=== PATIENT | male | born 1960 | race Caucasian/White ===

== ENCOUNTER 2016-09-01 05:01 | Emergency (ER) | payer OTHER ==
[2016-09-01 05:23] VITALS: BP 130/90; TEMP 98.8; O2SAT 97
--- NOTE | 2016-09-01 05:24 | ED.PDOC ---
History of Present Illness - General Chief Complaint: GI Problem Stated Complaint: upper abd pain, "galstones" Time Seen by Provider: 09/01/16 05:19 - History of Present Illness Allergies/Adverse Reactions: Allergies NO KNOWN ALLERGY Allergy (Unverified 11/14/14 07:32) Home Medications: Ambulatory Orders Lisinopril 20 mg PO BID 11/14/14 Past Medical History (General) - Patient Medical History Hx Stroke: No Hx Congestive Heart Failure: No Hx Diabetes: No Hx Hepatitis C: Yes - Vaccination History Hx Influenza Vaccination: No - Social History Hx Tobacco Use: Yes Family Medical History - Family History Father Family History: Unknown Living Status: Still Living Progress - Progress Progress: 09/01/16 05:55 REFUSES BLOOD DRAW. WANT'S A PILL AND GO. SWITCHED TORADOL TO PO Departure - Departure Clinical Impression: Epigastric abdominal pain, Essential (primary) hypertension ICD-10 Supporting Text: BILIARY COLIC VS GASTRITIS Time of Disposition: 05:57 Disposition: Discharge to Home or Self Care Condition: Fair Departure Forms: ED Discharge - Pt. Copy, Patient Portal Self Enrollment Instructions: Gallstones Home Medications: Ambulatory Orders Lisinopril 20 mg PO BID 11/14/14
[2016-09-01] MEDS ORDERED: PROMETHAZINE HCL INJ 12.5 MG in SODIUM CHLORIDE 0.9% 50ML 50 ML IVPB ONE (05:25)
[2016-09-01] MEDS ORDERED: KETOROLAC TROMETHAMINE INJ 30 MG/ML VIAL IV ONE (05:25)
[2016-09-01] MEDS ORDERED: KETOROLAC TROMETHAMINE 10 MG TAB PO ONE (05:45)
== END 2016-09-01 06:05 | disposition home or self-care (01) ==
LOC: ER 05:01
DX: R10.13 Epigastric pain (principal); I10 Essential (primary) hypertension; Z86.19 Personal history of other infectious and parasitic diseases; Z87.891 Personal history of nicotine dependence

== ENCOUNTER → 2016-09-20 | Outpatient (CLI) | payer OTHER ==
--- NOTE | 2016-09-20 10:08 | US ---
EXAM DESCRIPTION: US ABDOMEN CLINICAL HISTORY: RUQ PAIN COMPARISON: None Available. TECHNIQUE: Complete abdominal ultrasound was performed utilizing grayscale imaging. [employer] static images were saved to the patient's medical record. FINDINGS: The liver is echogenic. There is a hypoechoic focus seen within the caudate lobe. This is compatible with a cyst and was noted on the previous CT from 2014. Cholelithiasis noted. Gallbladder wall is not thickened. The incompletely imaged pancreas is unremarkable. There is splenomegaly. The spleen measures 15.5 cm in diameter. Bilateral kidneys are unobstructed and unremarkable. The common bile duct measures 5 mm in diameter. IMPRESSION: Cholelithiasis. No evidence of cholecystitis as the gallbladder wall is not thickened. Single hepatic cyst is again noted and stable when compared November 26, 2014. The liver is echogenic which can be seen in setting of fatty infiltration or hepatocellular disease. Electronically signed by: Benjamín Mota MD 09/20/2016 10:07
== END ==
LOC: US 08:55
PROVIDERS: ATTEND Surgery
DX: K80.20 Calculus of gallbladder without cholecystitis without obstruction (principal); K76.89 Other specified diseases of liver

== ENCOUNTER 2016-12-27 03:11 | Emergency (ER) | payer OTHER ==
[2016-12-27] MEDS ORDERED: HYDROmorphone HCL INJ 2 MG/ML VIAL ONE (03:22)
[2016-12-27] MEDS ORDERED: HYDROmorphone HCL INJ 2 MG/ML VIAL IV ONE (03:38)
[2016-12-27] MEDS ORDERED: fentaNYL CITRATE INJ 50 MCG/ML AMP ONE (03:48)
[2016-12-27] MEDS ORDERED: fentaNYL CITRATE INJ 50 MCG/ML AMP IV ONE ×2 (03:58→05:06)
[2016-12-27 04:36] VITALS: TEMP 98
--- NOTE | 2016-12-27 04:38 | CT ---
EXAM: CT abdomen and pelvis with contrast. INDICATION: Abdominal pain, acute. TECHNIQUE: Contiguous axial CT images of the abdomen and pelvis. Intravenous contrast: Present. Oral contrast: Absent. DLP 831 mGy-cm. This exam was performed according to our departmental dose-optimization program, which includes automated exposure control, adjustment of the mA and/or kV according to patient size and/or use of iterative reconstruction technique. COMPARISON: 11/26/2014. FINDINGS: Lower chest: Partially imaged. Lung bases: Unremarkable. Cardiac apex: Unremarkable. Solid abdominal viscera: Liver: There is a 3 cm hepatic cyst. The liver has a mildly nodular contour Gallbladder: Cholelithiasis Pancreas: Unremarkable. Spleen: Unremarkable. Adrenal glands: Unremarkable. Right kidney: No hydronephrosis. Left kidney: No hydronephrosis. Urinary bladder: Unremarkable. Abdominal aorta: Unremarkable. Peritoneal: Free fluid: None. Free air: None. Other: No pathologic sized lymph nodes in the upper abdomen. Bowel: Stomach: Unremarkable. Small bowel: Unremarkable. Appendix: Unremarkable. Colon: Diverticulosis without evidence of diverticulitis Rectum: Unremarkable. Prostate: Unremarkable. Bones: Unremarkable. IMPRESSION: No acute findings. Cholelithiasis. Mildly nodular contour of the liver, which may due to cirrhosis. Diverticulosis without evidence of diverticulitis Electronically signed by: Braeden Combs MD 12/27/2016 4:38 AM CDT
[2016-12-27] MEDS ORDERED: SODIUM CHLORIDE 0.9% 10 ML VIAL ONE (04:52)
--- NOTE | 2016-12-27 04:56 | ED.PDOC ---
History of Present Illness - General Chief Complaint: Abdominal Pain Time Seen by Provider: 12/27/16 03:11 Information Source: patient, RN notes reviewed, Vital Signs reviewed Exam Limitations: no limitations - History of Present Illness Initial Comments: Patient is a 56 y/o male with a known history of cholelithiasis. He has been trying to eat low-fat meals so he doesn't have any pain. However, this AM at about 0200, he started having severe pain in the RUQ. The pain is sharp/crampy , 10/10. He denies any fever/chills or nausea/vomiting. Abdominal Pain Onset Location: RUQ Pain Radiation: back Quality: severe, cramping, sharpness Timing/Duration: 1-3 hours Improving Factors: nothing Worsening Factors: nothing Associated Symptoms: denies symptoms Review of Systems - Review of Systems Constitutional: States: no symptoms reported. Denies: chills, fever EENTM: States: no symptoms reported Respiratory: States: no symptoms reported Cardiology: States: no symptoms reported Gastrointestinal/Abdominal: States: abdominal pain. Denies: nausea, vomiting Genitourinary: States: no symptoms reported Musculoskeletal: States: no symptoms reported Skin: States: no symptoms reported Neurological: States: no symptoms reported Endocrine: States: no symptoms reported Hematologic/Lymphatic: States: no symptoms reported All other Systems: Reviewed and Negative Past Medical History (General) - Patient Medical History Hx Stroke: No Hx Cardiac Disorders: Yes Hx Congestive Heart Failure: No Hx Hypertension: Yes Hx Diabetes: No Hx Gastroesophageal Reflux: Yes Hx Hepatitis C: Yes - Vaccination History Hx Tetanus, Diphtheria Vaccination: No Hx Influenza Vaccination: No Hx Pneumococcal Vaccination: No Immunizations Up to Date: Yes - Social History Hx Tobacco Use: No Hx Alcohol Use: No Hx Substance Use: No Hx Substance Use Treatment: No Hx Depression: No Feels Threatened In Home Enviroment: No Feels Threatened In a Relationship: No Hx Physical Abuse: No Hx Emotional Abuse: No Hx Suspected Abuse: No - Activities of Daily Living Hospice Agency (if applicable):: None Family Medical History - Family History Father Family History: Unknown Living Status: Still Living Physical Exam - Physical Exam General Appearance: Alert, Obvious distress Eyes, Ears, Nose, Throat Exam: normal ENT inspection Neck: full range of motion, supple Respiratory: lungs clear, normal breath sounds, no respiratory distress, no accessory muscle use Cardiovascular/Chest: regular rate, rhythm, no edema, no gallop, no murmur Gastrointestinal/Abdominal: normal bowel sounds, tenderness - RUQ, + Morris's Extremity: normal range of motion, non-tender, normal inspection Neurologic: alert, normal mood/affect, oriented x 3 Skin Exam: normal color, warm/dry Progress - Progress Progress: 12/27/16 04:58 Patient was given Dilaudid 2 mg IV which did not reduce his pain. Therefore, he was given Fentanyl 50 mg which helped immensely and gave him relief and pain decreased to 7/10. Patient reports that if he sees a surgeon that his company has contracted with, he can get a leandra for free, so he wants to go home and call to get that arranged. I will give him a take-home pack of hydrocodone to help with the pain. He is to return for any uncontrollable pain or fever. - EKG/XRAY/CT CT: Abd/Pelv: Cholelithiasis CT Ordered: Yes Departure - Departure Clinical Impression: Cholelithiasis Qualifiers: Cholelithiasis location: gallbladder Cholecystitis presence: without cholecystitis Biliary obstruction: without biliary obstruction Qualified Code(s) : K80.20 - Calculus of gallbladder without cholecystitis without obstruction Time of Disposition: 05:05 Disposition: Discharge to Home or Self Care Condition: Fair Departure Forms: ED Discharge - Pt. Copy, Patient Portal Self Enrollment Instructions: Gallstones, DI for Gallstones Diet: bland diet Home Medications: Ambulatory Orders Lisinopril 20 mg PO BID 11/14/14 Omeprazole 40 mg PO DAILY 12/27/16 Additional Instructions: Follow up in ED for any pain not relieved with pain medication or fever.
[2016-12-27] MEDS ORDERED: HYDROCOD/APAP 10/325 (ER DISP) # 3 tablets PO ONE (05:04)
[2016-12-27 05:36] VITALS: BP 140/68; O2SAT 97
== END 2016-12-27 05:33 | disposition home or self-care (01) ==
LOC: ER 03:11
DX: K80.20 Calculus of gallbladder without cholecystitis without obstruction (principal); I10 Essential (primary) hypertension; K21.9 Gastro-esophageal reflux disease without esophagitis; B19.20 Unspecified viral hepatitis C without hepatic coma
CPT/HCPCS: 36415; 74177; 80053; 85025; J1170; J3010